=== PATIENT | female | born 1940 | race Caucasian/White ===

== ENCOUNTER → 2017-10-13 | Outpatient (CLI) | payer MEDICARE, BC ==
--- NOTE | 2017-10-13 12:16 | MR ---
EXAMINATION TYPE: MR brain wo con DATE OF EXAM: 10/13/2017 COMPARISON: NONE HISTORY: Mild Cognitive Impairment T1-weighted sagittal, T2, FLAIR, and diffusion axial, and T2 coronal coronal views of the brain are s ubmitted. There is no evidence of acute ischemia. Changes of chronic sinusitis noted. Mild generalized degenera tive change noted. A few areas of abnormal signal seen scattered in the white matter are nonspecific but most typical re mote microvascular ischemia. There is no mass effect. Craniocervical junction maintained. Sella turcica has a normal appearance. No cerebellopontine angle mass. Absence of the normal signal void within the left carotid artery susp ect chronic thrombosis given there are no findings of acute ischemia. IMPRESSION: 1. No acute intracranial process. There is absence of the normal signal void of the left internal car otid artery. Recommend correlation with ultrasound for possible chronic occlusion. No acute ischemia. 2. Mild generalized degenerative change. Minimal nonspecific white matter findings most typical remot e microvascular ischemia. 3. Chronic sinusitis.
== END | disposition home or self-care (01) ==
LOC: RADMRIMAIN 10:19
PROVIDERS: ATTEND Psychiatry & Neurology Neurology
DX: R90.82 White matter disease, unspecified (principal); R93.0 Abnormal findings on diagnostic imaging of skull and head, not elsewhere classified; G31.84 Mild cognitive impairment of uncertain or unknown etiology
CPT/HCPCS: 70551

== ENCOUNTER 2018-01-26 09:56 | Day surgery (SDC) | payer MEDICARE, BC ==
[2018-01-24 18:13] VITALS: BMI 21.6
[~2018-01-26 09:56] MED LIST: SODIUM CHLORIDE 0.9% 1,000 ML IV SCH
[2018-01-26] MEDS ORDERED: CLINDAMYCIN 900 MG in DEXTROSE 5% IN WATER 50 ML IVPB ONE ×2 (10:00)
[2018-01-26] MEDS ORDERED: CLINDAMYCIN 600 MG in SODIUM CHLORIDE 0.9% IRRIGATIO 250 ML IRRIGATION ONE (10:00)
[2018-01-26 10:39] LABS: Basophils % (A) 0 %; Eosinophils # (A) 0.1 k/uL (0-0.7); Eosinophils % (A) 2 %; HGB 11.2 gm/dL (11.4-16.0); Lymphocytes # (A) 1.1 k/uL (1.0-4.8); Lymphocytes % (A) 16 %; MCH 27.3 pg (25.0-35.0); MCHC 31.9 g/dL (31.0-37.0); MCV 85.6 fL (80.0-100.0); Mean Platelet Volume 7.3; Monocytes # (A) 0.5 k/uL (0-1.0); Monocytes % (A) 7 %; Neutrophils # (A) 4.9 k/uL (1.3-7.7); Neutrophils % (A) 73 %; Platelet Count 191 k/uL (150-450); RBC 4.09 m/uL (3.80-5.40); RDW 15.4 % (11.5-15.5); WBC 6.7 k/uL (3.8-10.6)
[2018-01-26 10:40] LABS: Glucose,Whole Blood 139 mg/dL (75-99)
[2018-01-26 10:58] LABS: Calcium 9.7 mg/dL (8.4-10.2); Potassium 5.1 mmol/L (3.5-5.1)
[2018-01-26] MEDS ORDERED: IV FLUID CONTINUATION 1,000 ML IV ONE (11:00)
[2018-01-26] MEDS: IODIXANOL 320 MG/ML 100 ML IV ONE ×2 (11:20→12:09)
[2018-01-26] MEDS: fentaNYL (PF) 50 MCG/ML 2 ML AMP IV ONE ×2 (11:45→11:54)
[2018-01-26] MEDS ORDERED: MIDAZOLAM 2 MG/2 ML VIAL ONE (11:45)
[2018-01-26] MEDS ORDERED: fentaNYL (PF) 50 MCG/ML 2 ML AMP ONE (11:45)
[2018-01-26] MEDS: MIDAZOLAM 2 MG/2 ML VIAL IV ONE ×2 (11:46→11:54)
[2018-01-26] MEDS ORDERED: LIDOCAINE 1% INJ 10MG/ML (20 ML MDV) SQ ONE (11:49)
[2018-01-26] MEDS: LIDOCAINE 1% (PF) 10MG/ML VIAL SQ ONE ×2 (11:49→12:00)
[2018-01-26] MEDS ORDERED: ACETAMINOPHEN TAB 325 MG TAB PO PRN (12:59)
[2018-01-26] MEDS ORDERED: ALPRAZolam 0.5 MG TAB PO PRN (13:48)
[2018-01-26] MEDS ORDERED: ALBUTEROL NEBULIZED 2.5 MG/3 ML INHALATION PRN (13:48)
[2018-01-26] MEDS: CLINDAMYCIN 900 MG in DEXTROSE 5% IN WATER 50 ML IVPB SCH ×4 (17:51→23:42)
[2018-01-26] MEDS: CARVEDILOL 3.125 MG TAB PO SCH (17:51)
[2018-01-26] MEDS: OXYBUTYNIN XL 5 MG TAB.ER.24 PO SCH (19:46)
[2018-01-26] MEDS: GABAPENTIN 400 MG CAP PO SCH (19:47)
[2018-01-26 20:52] LABS: Glucose,Whole Blood 108 mg/dL (75-99)
[2018-01-26 20:55] LABS: Hemoglobin A1C 7.1 % (4.0-6.0)
[2018-01-26] MEDS ORDERED: PRIMIDONE 50 MG TAB PO SCH (21:00)
[2018-01-27] MEDS: CLINDAMYCIN 900 MG in DEXTROSE 5% IN WATER 50 ML IVPB SCH ×4 (06:10→11:46)
[2018-01-27] MEDS ORDERED: LEVOTHYROXINE 25 MCG TAB PO SCH (06:30)
[2018-01-27 07:07] LABS: Glucose,Whole Blood 135 mg/dL (75-99)
--- NOTE | 2018-01-27 08:03 | XR ---
EXAMINATION TYPE: XR chest 2V DATE OF EXAM: 01/27/2018 COMPARISON: 01/07/2017 INDICATION: Lead placement check TECHNIQUE: Frontal and lateral views of the chest are obtained. FINDINGS: The heart size is normal. The pulmonary vasculature is normal. The lungs are clear. Sternotomy wires are present from previous cardiac valve surgery. Post-CABG viviana gical clips are present. Pacemaker is placed on the left. Leads follow a normal course. No pneumothorax is evident. IMPRESSION: 1. No pneumothorax post pacer maker placement. 2. No acute pulmonary process.
[2018-01-27 08:05] VITALS: RESP 16
[2018-01-27] MEDS: GABAPENTIN 400 MG CAP PO SCH (08:32)
[2018-01-27] MEDS: OXYBUTYNIN XL 5 MG TAB.ER.24 PO SCH (08:32)
[2018-01-27] MEDS: CARVEDILOL 3.125 MG TAB PO SCH (08:33)
[2018-01-27] MEDS ORDERED: ATORVASTATIN 80 MG TAB PO SCH (09:00)
[2018-01-27] MEDS ORDERED: PANTOPRAZOLE 40 MG TABLET PO SCH (09:00)
[2018-01-27] MEDS ORDERED: ISOSORBIDE MONONITRATE ER 30 MG TAB.ER.24H PO SCH (09:00)
[2018-01-27] MEDS ORDERED: SERTRALINE 50 MG TAB PO SCH (09:00)
[2018-01-27] MEDS ORDERED: glipiZIDE 5 MG TAB PO SCH (09:00)
--- NOTE | 2018-01-27 11:09 | P.PN ---
Subjective Progress Note Date: 01/27/18 Principal diagnosis: Status post pacemaker implantation Discharge note This is a pleasant 77-year-old female patient with history of coronary artery disease, hypertension, hyperlipidemia, who was admitted to the hospital by Dr. Perez yesterday for implantation of a permanent pacemaker. Patient had worn an event monitor which displayed episodes of long pauses up to 4.1 seconds, she also had episode of syncope. Device was interrogated this morning and is functioning appropriately. Chest x-ray was reviewed and did not reveal any evidence of a pneumothorax. Patient is hemodynamically stable. Objective - Vital Signs Vital signs: Vital Signs Temp 98.2 F 01/27/18 08:00 Pulse 67 01/27/18 08:00 Resp 16 01/27/18 08:00 BP 160/71 01/27/18 08:00 Pulse Ox 97 01/27/18 08:00 Intake & Output 01/26/18 01/27/18 01/27/18 18:59 06:59 18:59 Intake Total 106 Balance 106 Weight 60.781 kg Intake: IV 106 Other: Voiding Method Toilet Toilet Toilet # Voids 3 - Exam PHYSICAL EXAMINATION: HEENT: Head is atraumatic, normocephalic. Pupils equal, round. Neck is supple. There is no elevated jugular venous pressure. HEART EXAMINATION: Heart S1, S2 normal. No murmur or gallop heard. CHEST EXAMINATION: Lungs are clear to auscultation and precussion. No chest wall tenderness is noted on palpation or with deep breathing. Site of pacemaker implantation dressing is dry and intact ABDOMEN: Soft, nontender. Bowel sounds are heard. No organomegaly noted. EXTREMITIES: 2+ peripheral pulses with no evidence of peripheral edema and no calf tenderness noted. NEUROLOGIC patient is awake, alert and oriented -3. . - Labs CBC & Chem 7: 01/26/18 10:30 01/26/18 10:30 Labs: Abnormal Lab Results - Last 24 Hours (Table) 01/26/18 01/26/18 01/27/18 Range/Units 10:28 20:51 07:05 POC Glucose (mg/dL) 108 H 135 H (75-99) mg/dL Hemoglobin A1c 7.1 H (4.0-6.0) % Assessment and Plan Plan: Assessment and plan #1 status post implantation of permanent pacemaker. #2 diabetes #3 hypertension #4 hyperlipidemia number #5 history of bypass surgery and mitral valve repair with ring Plan Patient will be discharged home today. Appointment will be made with Dr. Perez in the device clinic in one week. She will continue on Cleocin for 3 days. Patient will also be discharged home on Lipitor 80 mg daily, Coreg 3.125 mg twice a day, Neurontin 800 mg daily, Glucotrol, Imdur 30 mg daily, Synthroid, Zoloft, Protonix. DNP note has been reviewed, I agree with a documented findings and plan of care. Patient was seen and examined.
[2018-01-27 11:59] LABS: Glucose,Whole Blood 138 mg/dL (75-99)
[2018-01-27 12:07] VITALS: BP 119/59; PULSE 61; TEMP 98
[2018-01-27] MEDS ORDERED: CLINDAMYCIN 150 MG CAP PO SCH (21:00)
--- NOTE | 2018-02-01 18:26 | P.PCN ---
Date of Procedure: 01/26/18 Preoperative Diagnosis: Sick sinus syndrome, syncope episodes, sinus pauses of more than 4 seconds Postoperative Diagnosis: The same Procedure(s) Performed: Dual-chamber permanent pacemaker implantation, axillary venography Description of Procedure: HISTORY: This is a 77-year-old female with history of ischemic heart disease who has had episodes of syncope. Patient had event monitor which showed evidence of sick sinus syndrome with pauses up to 4 seconds. In view of her recurrent syncopal episodes and evidence of sick sinus syndrome, patient is advised to have permanent pacemaker implantation. CONSENT:I have discussed the risks, benefits and alternative therapies for the above-mentioned procedure and for both sedation/analgesia as well as necessary blood product administration, if indicated, as they pertain to this patient. The patient has indicated understanding and acceptance of the risks and procedures discussed. PROCEDURE: Patient was brought to the lab in a fasting state. Patient was prepped and draped in the usual fashion. Patient was given IV sedation with fentanyl and Versed. The skin below the left clavicle was infiltrated with lidocaine. An incision was made parallel to deltopectoral groove was deepened until the pectoral fascia was exposed. A pocket was created by blunt dissection and cautery. Axillary venography was performed to delineate the course of the axillary vein. 2 sticks were performed into extrathoracic portion of the axillary vein and 2 sheaths were advanced over the guidewires and left in subclavian vein. Conscious Sedation: Versed 1mg Fentanyl 50 g Duration 60minutes LEADS: ATRIAL: This is manufactured by [employer] Model number is [id number] and the serial number is [id number]. VENTRICULAR: This is manufactured by [employer]. Model number is [id number]. Serial number is [id number]. The ventricular lead is maneuvered l with help of a straight and curved stylets into the left ventricle apical region. Satisfactory position was obtained and threshold measurements were made. The atrial lead was then maneuvered into the right atrial appendage. And thresholds were obtained. THRESHOLDS: ATRIUM: The minimum pacing threshold was 1.3 at pulse width of 0.5 with impedance of 393 ohms. P-wave: 2.3 VENTRICLE:. The minimal pacing threshold was 0.4 at pulse width of 0.5. The impedance was 798 R-wave: 12.1 The leads and pulse generator remained in the pocket after it was washed with antibiotics. Pocket was closed in the usual fashion. The fascia was closed with 2-0 Prolene ,the subcutaneous tissue was closed with 3-0 Prolene and the skin was closed with 4-0 Prolene. PROGRAMMING: MODE: DDDR RATE: 60 to 130 OUTPUT: Atrium: 3.5, Ventricle: 3.5 FINAL IMPRESSION: #1. Successful implantation of dual-chamber permanent pacemaker. #2. Axillary venography COMPLICATIONS: Nil PLAN:. Patient will be continued on prophylactic antibiotic. She will be monitored on the telemetry unit for the next 24 hours. If stable patient be discharged home in the morning.
== END 2018-01-27 13:37 | disposition home or self-care (01) ==
LOC: CATHEP 09:56 → 3OBS 13:05 → CATHEP 01-27 13:37
PROVIDERS: ATTEND Internal Medicine Cardiovascular Disease
DX: I49.5 Sick sinus syndrome (principal); R55 Syncope and collapse; I25.9 Chronic ischemic heart disease, unspecified; R94.31 Abnormal electrocardiogram [ECG] [EKG]; I25.10 Atherosclerotic heart disease of native coronary artery without angina pectoris; Z87.891 Personal history of nicotine dependence; E78.00 Pure hypercholesterolemia, unspecified; I10 Essential (primary) hypertension; E11.9 Type 2 diabetes mellitus without complications; Z95.1 Presence of aortocoronary bypass graft; Z95.5 Presence of coronary angioplasty implant and graft; Z82.49 Family history of ischemic heart disease and other diseases of the circulatory system; I65.29 Occlusion and stenosis of unspecified carotid artery; Z79.82 Long term (current) use of aspirin; Z79.899 Other long term (current) drug therapy; Z88.0 Allergy status to penicillin
CPT/HCPCS: 33208; 80048; 85025; 83036; 71046; C1898; C1785; J2250; Q9967; J3010; J2001

== ENCOUNTER 2018-07-17 11:16 | Observation (INO) | payer MEDICARE, BC ==
[2018-07-17] MEDS ORDERED: ASPIRIN 81 MG PO STA (11:27)
[2018-07-17] MEDS ORDERED: NITROGLYCERIN OINT 1 INCH/GM PACKET TOPICAL STA (11:27)
--- NOTE | 2018-07-17 11:42 | ED ---
General Adult HPI - General Chief complaint: Chest Pain Stated complaint: Chest pain, SOB Time Seen by Provider: 07/17/18 11:20 Source: patient, RN notes reviewed Mode of arrival: ambulatory Limitations: no limitations - History of Present Illness Initial comments: This is a 77-year-old female presents emergency Department complaining of chest pain. Patient states she has a past medical history of bypass surgery 2 multiple stents. Patient states she has a diabetic does have high blood pressure and does have high cholesterol. Patient comes in today with chest pain that started at 9:00 this morning and it radiates down her right arm and it also makes her short of breath. Patient states it is similar pain to the pain she had when she had a bypass surgery. Patient states she did not take any nitroglycerin. She did take an 81 mg aspirin when she woke up this morning. Patient denies any palpitations. Patient denies any recent fever chills or cough. Patient denies headache patient denies numbness weakness. - Related Data Home Medications Medication Instructions Recorded Confirmed Omeprazole 20 mg PO DAILY 06/02/16 07/17/18 Primidone [Mysoline] 50 mg PO HS 06/02/16 07/17/18 Sertraline [Zoloft] 150 mg PO DAILY 06/02/16 07/17/18 Albuterol Nebulized [Ventolin 2.5 mg INHALATION RT-TID PRN 11/06/17 07/17/18 Nebulized] Aspirin [Adult Low Dose Aspirin EC] 81 mg PO DAILY 11/06/17 07/17/18 Atorvastatin Calcium [Lipitor] 80 mg PO DAILY 11/06/17 07/17/18 Isosorbide Mononitrate ER [Imdur] 30 mg PO DAILY 11/06/17 07/17/18 Levothyroxine Sodium 25 mcg PO DAILY 11/06/17 07/17/18 glipiZIDE [Glucotrol] 5 mg PO DAILY 11/06/17 07/17/18 Carvedilol [Coreg] 12.5 mg PO BID 07/17/18 07/17/18 Cyanocobalamin (Vitamin B-12) 1,000 mcg PO DAILY 07/17/18 07/17/18 [Vitamin B-12] Nitroglycerin Sl Tabs [Nitrostat] 0.4 mg PO Q5M PRN 07/17/18 07/17/18 Nortriptyline HCl [Pamelor] 50 mg PO HS 07/17/18 07/17/18 Oxybutynin Chloride [Oxybutynin 10 mg PO DAILY 07/17/18 07/17/18 Chloride ER] Tear Drops 1 drop BOTH EYES DAILY PRN 07/17/18 07/17/18 Allergies Allergy/AdvReac Type Severity Reaction Status Date / Time adhesive Allergy Rash/Hives Verified 07/17/18 12:25 adhesive tape Allergy Rash/Hives Verified 07/17/18 12:25 Cephalosporins Allergy Unknown Verified 07/17/18 12:25 erythromycin base Allergy Rash/Hives Verified 07/17/18 12:25 Macrolide Antibiotics Allergy Unknown Verified 07/17/18 12:25 zolpidem Allergy Unknown Verified 07/17/18 12:25 EKG pads Allergy Rash/Hives Uncoded 07/17/18 11:22 Review of Systems ROS Statement: Those systems with pertinent positive or pertinent negative responses have been documented in the HPI. ROS Other: All systems not noted in ROS Statement are negative. Past Medical History Past Medical History: Coronary Artery Disease (CAD), Diabetes Mellitus, Hyperlipidemia, Hypertension, Myocardial Infarction (NE), Renal Disease, Thyroid Disorder Additional Past Medical History / Comment(s): NE X2, HEART VALVE REPLACED. 3RD STAGE KIDNEY DISEASE. TREMORS HANDS. OCC SHORTNESS OF BREATH. SEE DR Toure. Last Myocardial Infarction Date:: 2015 EST History of Any Multi-Drug Resistant Organisms: None Reported Past Surgical History: Appendectomy, Cardiac Valve Replacement, Cholecystectomy , Heart Catheterization With Stent, Joint Replacement, Orthopedic Surgery, Pacemaker, Tonsillectomy Additional Past Surgical History / Comment(s): Bilateral shoulder sx, SYDNI TOTAL KNEES. STENTS X2. left shoulder scope. Pacemaker - January 2018 Past Anesthesia/Blood Transfusion Reactions: No Reported Reaction Date of Last Stent Placement:: UNKNOWN Type of Cardiac Device: Permanent Pacemaker, Unknown Device Placement Date:: January 2018 Past Psychological History: Anxiety, Depression Smoking Status: Former smoker Past Alcohol Use History: None Reported Past Drug Use History: None Reported - Past Family History Mother Family Medical History: No Reported History General Exam - General Exam Comments Initial Comments: GENERAL: Patient is well-developed and well-nourished. Patient is nontoxic and well- hydrated and is in mild distress. ENT: Neck is soft and supple. No significant lymphadenopathy is noted. Oropharynx is clear. Moist mucous membranes. Neck has full range of motion without eliciting any pain. EYES: The sclera were anicteric and conjunctiva were pink and moist. Extraocular movements were intact and pupils were equal round and reactive to light. Eyelids were unremarkable. PULMONARY: Unlabored respirations. Good breath sounds bilaterally. No audible rales rhonchi or wheezing was noted. CARDIOVASCULAR: There is a regular rate and rhythm without any murmurs gallops or rubs. ABDOMEN: Soft and nontender with normal bowel sounds. No palpable organomegaly was noted. There is no palpable pulsatile mass. SKIN: Skin is clear with no lesions or rashes and otherwise unremarkable. NEUROLOGIC: Patient is alert and oriented x3. Cranial nerves II through XII are grossly intact. Motor and sensory are also intact. Normal speech, volume and content. Symmetrical smile. MUSCULOSKELETAL: Normal extremities with adequate strength and full range of motion. LYMPHATICS: No significant lymphadenopathy is noted PSYCHIATRIC: Normal psychiatric evaluation. Limitations: no limitations Course Vital Signs 07/17/18 07/17/18 11:20 11:32 Temperature 97.7 F Pulse Rate 71 68 Respiratory 18 18 Rate Blood Pressure 168/85 165/78 O2 Sat by Pulse 99 99 Oximetry Medical Decision Making - Medical Decision Making EKG shows normal sinus rhythm at 65 bpm MS interval 178 QRSs 1 week QT interval 470 QTC is 48 patient EKG shows inverted T waves in leads V2 through V6 as well as 12 and aVL these are also seen on old EKG. Chest x-ray shows no acute abnormality I started the patient on heparin. I spoke with Dr. Good he wanted the patient admitted admitted the patient I consult cardiology I wrote admitting orders I continued the heparin Nitropaste and aspirin on the floor - Lab Data Result diagrams: 07/17/18 11:41 07/17/18 11:41 Lab Results 07/17/18 07/17/18 07/17/18 Range/Units 11:41 11:41 11:41 WBC 7.8 (3.8-10.6) k/uL RBC 4.51 (3.80-5.40) m/uL Hgb 13.1 (11.4-16.0) gm/dL Hct 41.1 (34.0-46.0) % MCV 91.3 (80.0-100.0) fL MCH 29.1 (25.0-35.0) pg MCHC 31.9 (31.0-37.0) g/dL RDW 14.7 (11.5-15.5) % Plt Count 196 (150-450) k/uL Neutrophils % 70 % Lymphocytes % 18 % Monocytes % 7 % Eosinophils % 3 % Basophils % 1 % Neutrophils # 5.5 (1.3-7.7) k/uL Lymphocytes # 1.4 (1.0-4.8) k/uL Monocytes # 0.5 (0-1.0) k/uL Eosinophils # 0.2 (0-0.7) k/uL Basophils # 0.0 (0-0.2) k/uL PT (9.0-12.0) sec INR (<1.2) APTT (22.0-30.0) sec Sodium 138 (137-145) mmol/L Potassium 4.7 (3.5-5.1) mmol/L Chloride 105 (98-107) mmol/L Carbon Dioxide 24 (22-30) mmol/L Anion Gap 9 mmol/L BUN 19 H (7-17) mg/dL Creatinine 0.90 (0.52-1.04) mg/dL Est GFR (CKD-EPI)AfAm 73 (>60 ml/min/1.73 sqM) Est GFR (CKD-EPI)NonAf 63 (>60 ml/min/1.73 sqM) Glucose 220 H (74-99) mg/dL Calcium 9.5 (8.4-10.2) mg/dL Magnesium 1.9 (1.6-2.3) mg/dL Total Bilirubin 0.6 (0.2-1.3) mg/dL AST 36 (14-36) U/L ALT 47 (9-52) U/L Alkaline Phosphatase 119 (38-126) U/L Total Creatine Kinase 94 (30-135) U/L CK-MB (CK-2) 1.3 (0.0-2.4) ng/mL CK-MB (CK-2) Rel Index 1.4 Troponin I <0.012 (0.000-0.034) ng/mL Total Protein 7.1 (6.3-8.2) g/dL Albumin 4.3 (3.5-5.0) g/dL 07/17/18 Range/Units 11:41 WBC (3.8-10.6) k/uL RBC (3.80-5.40) m/uL Hgb (11.4-16.0) gm/dL Hct (34.0-46.0) % MCV (80.0-100.0) fL MCH (25.0-35.0) pg MCHC (31.0-37.0) g/dL RDW (11.5-15.5) % Plt Count (150-450) k/uL Neutrophils % % Lymphocytes % % Monocytes % % Eosinophils % % Basophils % % Neutrophils # (1.3-7.7) k/uL Lymphocytes # (1.0-4.8) k/uL Monocytes # (0-1.0) k/uL Eosinophils # (0-0.7) k/uL Basophils # (0-0.2) k/uL PT 10.6 (9.0-12.0) sec INR 1.1 (<1.2) APTT 24.0 (22.0-30.0) sec Sodium (137-145) mmol/L Potassium (3.5-5.1) mmol/L Chloride (98-107) mmol/L Carbon Dioxide (22-30) mmol/L Anion Gap mmol/L BUN (7-17) mg/dL Creatinine (0.52-1.04) mg/dL Est GFR (CKD-EPI)AfAm (>60 ml/min/1.73 sqM) Est GFR (CKD-EPI)NonAf (>60 ml/min/1.73 sqM) Glucose (74-99) mg/dL Calcium (8.4-10.2) mg/dL Magnesium (1.6-2.3) mg/dL Total Bilirubin (0.2-1.3) mg/dL AST (14-36) U/L ALT (9-52) U/L Alkaline Phosphatase (38-126) U/L Total Creatine Kinase (30-135) U/L CK-MB (CK-2) (0.0-2.4) ng/mL CK-MB (CK-2) Rel Index Troponin I (0.000-0.034) ng/mL Total Protein (6.3-8.2) g/dL Albumin (3.5-5.0) g/dL Critical Care Time Critical Care Time: Yes Total Critical Care Time: 35 Disposition Clinical Impression: Unstable angina pectoris Disposition: ADMITTED IP TO THIS HOSP Referrals: Josh Good MD [Primary Care Provider] - 1-2 days Time of Disposition: 13:06
[2018-07-17 11:55] LABS: Basophils % (A) 1 %; Eosinophils # (A) 0.2 k/uL (0-0.7); Eosinophils % (A) 3 %; HCT 41.1 % (34.0-46.0); HGB 13.1 gm/dL (11.4-16.0); Lymphocytes # (A) 1.4 k/uL (1.0-4.8); Lymphocytes % (A) 18 %; MCH 29.1 pg (25.0-35.0); MCHC 31.9 g/dL (31.0-37.0); MCV 91.3 fL (80.0-100.0); Mean Platelet Volume 6.5; Monocytes # (A) 0.5 k/uL (0-1.0); Monocytes % (A) 7 %; Neutrophils # (A) 5.5 k/uL (1.3-7.7); Neutrophils % (A) 70 %; Platelet Count 196 k/uL (150-450); RBC 4.51 m/uL (3.80-5.40); RDW 14.7 % (11.5-15.5); WBC 7.8 k/uL (3.8-10.6)
--- NOTE | 2018-07-17 12:00 | XR ---
EXAMINATION TYPE: XR chest 2V DATE OF EXAM: 07/17/2018 COMPARISON: Prior chest x-ray 01/27/2018 HISTORY: Chest pain TECHNIQUE: Frontal and lateral views of the chest are obtained. FINDINGS: There is no focal air space opacity, pleural effusion, or pneumothorax seen. The cardiac silhouette size is within normal limits. The osseous structures are intact. Postop changes are stab le. IMPRESSION: No acute cardiopulmonary process.
[2018-07-17 12:06] LABS: Albumin 4.3 g/dL (3.5-5.0); Calcium 9.5 mg/dL (8.4-10.2); Magnesium 1.9 mg/dL (1.6-2.3); Potassium 4.7 mmol/L (3.5-5.1); Total Bilirubin 0.6 mg/dL (0.2-1.3); Total Protein 7.1 g/dL (6.3-8.2)
[2018-07-17 12:09] LABS: INR 1.1 (<1.2); Prothrombin Time 10.6 sec (9.0-12.0)
[2018-07-17 12:15] LABS: Creatine Kinase 94 U/L (30-135)
[2018-07-17 12:28] LABS: Creatine Kinase MB 1.3 ng/mL (0.0-2.4); Troponin I <0.012 ng/mL (0.000-0.034)
[2018-07-17] MEDS ORDERED: HEPARIN SODIUM,PORCINE 5,000 UNIT/ML 1 ML VIAL IV ONE (13:02)
[2018-07-17] MEDS ORDERED: NITROGLYCERIN SL TABS 0.4 MG TAB SUBLINGUAL PRN (13:06)
[2018-07-17] MEDS ORDERED: ALBUTEROL NEBULIZED 2.5 MG/3 ML INHALATION PRN (13:08)
[2018-07-17] MEDS ORDERED: HEPARIN SOD,PORK IN 0.45% NACL 25,000 UNIT in 0.45% NACL 1 500ML.BAG IV SCH (13:15)
[2018-07-17 14:30] LABS: Glucose,Whole Blood 115 mg/dL (75-99)
--- NOTE | 2018-07-17 15:25 | P.CRDCN ---
History of Present Illness History of present illness: Mrs. Martinez is seen and examined resting comfortably in bed. Past medical history significant for coronary artery disease s/p bypass grafting 1997 two- vessel JOY to LAD and SVG to RCA along with the mitral valve repair with a ring. Subsequent bypass 2000 radial to OM. She also has hypertension, dyslipidemia, diabetes mellitus, chronic kidney disease and is s/p permanent pacemaker insertion 01/2018 for syncope with greater than 4 second pauses. She follows with Dr. Perez in the office. We have been asked to see her in consultation for chest pain. She states this morning at 0900 while sitting down she developed and heavy sensation in the mid-sternal region with radiation down the right arm and right hand numbness/tingling. She was short of breath, dizzy and diaphoretic. She denies radiation to left arm, neck, jaw or back. She denies associated palpitations, nausea or vomiting. Her symptoms persisted until she came to ED for evaluation and was given nitropaste. Since that time she has had no reoccurrence of her symptoms. She states this felt similar to how she felt when she had previous AK. She also complains of feeling short of breath with exertion more so lately. She is unable to go up the stairs anymore due to this. She denies orthopnea, PND, cough, fever or chills. EKG reveals T-wave inversions in precordial leads as well as inferiorly. This is consistent with old EKG's, no acute changes noted. Chest xray negative for an acute cardiopulmonary process. Laboratory data reviewed, hemoglobin 13.1, platelets 196, sodium 138, potassium 4.7, magnesium 1.9, creatinine 0.9, cardiac enzymes negative 1. Current cardiac medications include aspirin 81 mg daily, atorvastatin 80 mg daily, carvedilol 12.5 mg twice a day, Imdur 30 mg daily. She also takes Pamelor, glipizide, Zoloft, primidone, oxybutynin 9, omeprazole, levothyroxine and Ventolin. Most recent cardiac catheterization performed 2009 revealed 80% proximal LAD, 90 % ostial diagonal 1, 80% mid circumflex, 80% proximal RCA, JOY to LAD and SVG to RCA patent. History of coronary artery bypass grafting Review of Systems At the time of my exam: CONSTITUTIONAL: Denies fever. Denies chills. EYES: Denies blurred vision. Denies vision changes. Denies eye pain. EARS, NOSE, MOUTH & THROAT: Denies headache. Denies sore throat. Denies ear pain. CARDIOVASCULAR: Denies chest pain. Denies shortness of breath. Denies orthopnea. Denies PND. Denies palpitations. RESPIRATORY: Denies cough. GASTROINTESTINAL: Denies abdominal pain. Denies diarrhea. Denies constipation. Denies nausea. Denies vomiting. MUSCULOSKELETAL: Denies myalgias. INTEGUMENTARY: Denies pruitis. Denies rash. NEUROLOGIC: Denies numbness. Denies tingling. Denies weakness. PSYCHIATRIC: Denies anxiety. Denies depression. ENDOCRINE: Denies fatigue. Denies weight change. Denies polydipsia. Denies polyurina. GENITOURINARY: Denies burning, hematuria or urgency with micturation. HEMATOLOGIC: Denies history of anemia. Denies bleeding. Past Medical History Past Medical History: Coronary Artery Disease (CAD), Diabetes Mellitus, Hyperlipidemia, Hypertension, Myocardial Infarction (AK), Renal Disease, Thyroid Disorder Additional Past Medical History / Comment(s): AK X2, HEART VALVE REPLACED. 3RD STAGE KIDNEY DISEASE. TREMORS HANDS. OCC SHORTNESS OF BREATH. SEE DR Toure. Last Myocardial Infarction Date:: 2015 EST History of Any Multi-Drug Resistant Organisms: None Reported Past Surgical History: Appendectomy, Cardiac Valve Replacement, Cholecystectomy , Heart Catheterization With Stent, Joint Replacement, Orthopedic Surgery, Pacemaker, Tonsillectomy Additional Past Surgical History / Comment(s): Bilateral shoulder sx, SYDNI TOTAL KNEES. STENTS X2. left shoulder scope. Pacemaker - January 2018, egd/ colonoscopy Past Anesthesia/Blood Transfusion Reactions: No Reported Reaction Additional Past Anesthesia/Blood Transfusion Reaction / Comment(s): clausterphobia Date of Last Stent Placement:: UNKNOWN Type of Cardiac Device: Permanent Pacemaker Device Placement Date:: January 2018 Past Psychological History: Anxiety, Depression Smoking Status: Former smoker Past Alcohol Use History: None Reported Additional Past Alcohol Use History / Comment(s): started smoking 1976 <1/2 PPD , QUIT 2011. Past Drug Use History: None Reported - Past Family History Mother Family Medical History: Diabetes Mellitus, Myocardial Infarction (AK) Father Family Medical History: Myocardial Infarction (AK) Medications and Allergies Home Medications Medication Instructions Recorded Confirmed Type Omeprazole 20 mg PO DAILY 06/02/16 07/17/18 History Primidone [Mysoline] 50 mg PO HS 06/02/16 07/17/18 History Sertraline [Zoloft] 150 mg PO DAILY 06/02/16 07/17/18 History Albuterol Nebulized [Ventolin 2.5 mg INHALATION RT-TID PRN 11/06/17 07/17/18 History Nebulized] Aspirin [Adult Low Dose Aspirin EC] 81 mg PO DAILY 11/06/17 07/17/18 History Atorvastatin Calcium [Lipitor] 80 mg PO DAILY 11/06/17 07/17/18 History Isosorbide Mononitrate ER [Imdur] 30 mg PO DAILY 11/06/17 07/17/18 History Levothyroxine Sodium 25 mcg PO DAILY 11/06/17 07/17/18 History glipiZIDE [Glucotrol] 5 mg PO DAILY 11/06/17 07/17/18 History Carvedilol [Coreg] 12.5 mg PO BID 07/17/18 07/17/18 History Cyanocobalamin (Vitamin B-12) 1,000 mcg PO DAILY 07/17/18 07/17/18 History [Vitamin B-12] Nitroglycerin Sl Tabs [Nitrostat] 0.4 mg PO Q5M PRN 07/17/18 07/17/18 History Nortriptyline HCl [Pamelor] 50 mg PO HS 07/17/18 07/17/18 History Oxybutynin Chloride [Oxybutynin 10 mg PO DAILY 07/17/18 07/17/18 History Chloride ER] Tear Drops 1 drop BOTH EYES DAILY PRN 07/17/18 07/17/18 History Allergies Allergy/AdvReac Type Severity Reaction Status Date / Time adhesive Allergy Rash/Hives Verified 07/17/18 12:25 adhesive tape Allergy Rash/Hives Verified 07/17/18 12:25 Cephalosporins Allergy Unknown Verified 07/17/18 12:25 erythromycin base Allergy Rash/Hives Verified 07/17/18 12:25 Macrolide Antibiotics Allergy Unknown Verified 07/17/18 12:25 zolpidem Allergy Unknown Verified 07/17/18 12:25 EKG pads Allergy Rash/Hives Uncoded 07/17/18 11:22 Physical Exam Vitals: Vital Signs Temp Pulse Resp BP Pulse Ox 07/17/18 11:32 68 18 165/78 99 07/17/18 11:20 97.7 F 71 18 168/85 99 Intake and Output 07/16/18 07/17/18 07/17/18 22:59 06:59 14:59 Other: Weight 64.864 kg Blood pressure 165/78 heart rate 68 afebrile maintaining oxygen saturation on nasal cannula GENERAL: This is a 77-year-old female in no apparent distress at the time of my examination. HEENT: Head is atraumatic, normocephalic. Pupils are equal, round. Sclerae anicteric. Conjunctivae are clear. Mucous membranes of the mouth are moist. Neck is supple. There is no jugular venous distention. No carotid bruit is heard. LUNGS: Clear to auscultation no wheezes, rales or rhonchi. No chest wall tenderness is noted on palpation or with deep breathing. HEART: Regular rate and rhythm with murmur at the apex, no rubs or gallops. S1 and S2 heard. ABDOMEN: Soft, nontender. Bowel sounds are heard. No organomegaly noted. EXTREMITIES: No evidence of peripheral edema and no calf tenderness noted. VASCULAR: Radial and dorsalis pedis pulses palpated, no evidence of clubbing. NEUROLOGIC: Patient is awake, alert and oriented x3. Results 07/17/18 11:41 07/17/18 11:41 Cardiac Enzymes 07/17/18 07/17/18 Range/Units 11:41 11:41 AST 36 (14-36) U/L CK-MB (CK-2) 1.3 (0.0-2.4) ng/mL Troponin I <0.012 (0.000-0.034) ng/mL Coagulation 07/17/18 Range/Units 11:41 PT 10.6 (9.0-12.0) sec APTT 24.0 (22.0-30.0) sec CBC 07/17/18 Range/Units 11:41 WBC 7.8 (3.8-10.6) k/uL RBC 4.51 (3.80-5.40) m/uL Hgb 13.1 (11.4-16.0) gm/dL Hct 41.1 (34.0-46.0) % Plt Count 196 (150-450) k/uL Comprehensive Metabolic Panel 07/17/18 Range/Units 11:41 Sodium 138 (137-145) mmol/L Potassium 4.7 (3.5-5.1) mmol/L Chloride 105 (98-107) mmol/L Carbon Dioxide 24 (22-30) mmol/L BUN 19 H (7-17) mg/dL Creatinine 0.90 (0.52-1.04) mg/dL Glucose 220 H (74-99) mg/dL Calcium 9.5 (8.4-10.2) mg/dL AST 36 (14-36) U/L ALT 47 (9-52) U/L Alkaline Phosphatase 119 (38-126) U/L Total Protein 7.1 (6.3-8.2) g/dL Albumin 4.3 (3.5-5.0) g/dL Current Medications Generic Name Dose Route Start Last Admin Trade Name Freq PRN Reason Stop Dose Admin Albuterol Sulfate 2.5 mg 07/17/18 13:08 Ventolin Nebulized INHALATION RT-TID PRN Shortness Of Breath Aspirin 325 mg 07/18/18 09:00 Aspirin PO DAILY [facility] Atorvastatin Calcium 80 mg 07/18/18 09:00 Lipitor PO DAILY [facility] Carvedilol 12.5 mg 07/17/18 17:30 Coreg PO AC-BID [facility] Glipizide 5 mg 07/18/18 07:30 Glucotrol PO AC-BRKFST [facility] Heparin Sodium/Sodium Chloride 500 mls @ 15.56 mls/hr 07/17/18 13:15 25,000 unit/ Sodium Chloride IV .Q24H [facility] Protocol 12 UNITS/KG/HR Nitroglycerin 1 inch 07/17/18 18:00 Nitro-Bid Oint TOPICAL Q6HR [facility] Nitroglycerin 0.4 mg 07/17/18 13:06 Nitrostat SUBLINGUAL Q5M PRN Chest Pain Intake and Output 07/16/18 07/17/18 07/17/18 22:59 06:59 14:59 Other: Weight 64.864 kg Patient Weight 07/18/18 06:59 Weight 64.864 kg 07/17/18 11:41 07/17/18 11:41 Assessment and Plan Assessment: ASSESSMENT Chest pain at rest. EKG abnormalities old, no changes. History of coronary artery disease with triple-vessel disease status post bypass grafting History of mitral valve repair Hypertension Dyslipidemia Status post permanent pacemaker implantation secondary to sinus pauses causing syncope. Diabetes mellitus Former nicotine dependence PLAN Obtain 2-D echocardiogram and Doppler study to assess cardiac structure and function. Continue to obtain serial cardiac enzymes to rule out an acute coronary event. If cardiac enzymes are negative 3 heparin infusion can be discontinued. Resume aspirin, atorvastatin, carvedilol and Imdur at home doses. Further recommendations to follow based on clinical course. Thank you kindly for this consultation. Nurse Practitioner note has been reviewed, I agree with a documented findings and plan of care. Patient was seen and examined.
[2018-07-17] MEDS: CARVEDILOL 12.5 MG TAB PO SCH (18:22)
[2018-07-17] MEDS: NITROGLYCERIN OINT 1 INCH/GM PACKET TOPICAL SCH (18:22)
[2018-07-17 18:27] VITALS: RESP 16
[2018-07-17 18:40] LABS: Creatine Kinase 81 U/L (30-135)
[2018-07-17 18:53] LABS: Creatine Kinase MB 1.2 ng/mL (0.0-2.4); Troponin I <0.012 ng/mL (0.000-0.034)
[2018-07-17 21:36] LABS: INR 1.1 (<1.2); Partial Thromboplastin Time 66.6 sec (22.0-30.0); Prothrombin Time 10.9 sec (9.0-12.0)
[2018-07-17] MEDS ORDERED: HEPARIN SODIUM,PORCINE 5,000 UNIT/ML 1 ML VIAL IV PRN (23:48)
[2018-07-18 00:31] LABS: Creatine Kinase 107 U/L (30-135)
[2018-07-18 00:45] LABS: Creatine Kinase MB 1.9 ng/mL (0.0-2.4); Troponin I <0.012 ng/mL (0.000-0.034)
[2018-07-18] MEDS: NITROGLYCERIN OINT 1 INCH/GM PACKET TOPICAL SCH ×2 (00:45→06:08)
[2018-07-18 03:50] LABS: Cholesterol 176 mg/dL (<200); HDL Cholesterol 48 mg/dL (40-60); LDL Cholesterol,Calculated 104 mg/dL (0-99); Triglycerides 122 mg/dL (<150)
[2018-07-18 06:43] LABS: Glucose,Whole Blood 148 mg/dL (75-99)
[2018-07-18] MEDS ORDERED: glipiZIDE 5 MG TAB PO SCH (07:30)
[2018-07-18] MEDS ORDERED: REGADENOSON 0.4 MG/5 ML SYRINGE IV ONE (07:35)
[2018-07-18] MEDS ORDERED: AMINOPHYLLINE 500 MG/20 ML VIAL IV PRN (07:35)
--- NOTE | 2018-07-18 08:06 | PN ---
PROGRESS NOTE Mrs. Martinez 77-year-old female who is followed by Dr. Perez on a regular basis, status post permanent pacemaker implantation, history of coronary bypass grafting, mitral valve repair, redo coronary artery bypass grafting in 2000, who presented with symptoms of chest discomfort occurring at rest, not activity related. She has some dyspnea on exertion with physical activity, but not at rest. She has no PND, no orthopnea. No dizziness. She is pain-free at this time. She denies any nausea and vomiting. She denies any cough or fever. She continues to be at this time on aspirin once a day, Lipitor 80 mg daily, Coreg 12.5 mg twice a day, isosorbide mononitrate 30 mg daily. PHYSICAL EXAMINATION: Blood pressure 137/70 with a heart in the 60s. LUNGS: Clear. HEART: Regular rate and rhythm. S1, S2. No S3 with systolic murmur heard at the base. No diastolic murmur. No rub. ABDOMEN: Soft, nontender. EXTREMITIES: No edema. LAB DATA: Lab data revealed troponin less than 0.012 with a BUN and creatinine of 19 and 0.9. Her LDL is 104. Her EKG revealed sinus mechanism with T-wave inversion in the lateral precordial leads that were noted in the past. IMPRESSION: 1. Chest discomfort of unclear etiology. No evidence of acute coronary syndrome. 2. History of coronary disease with redo coronary artery bypass grafting. 3. Post pacemaker implantation. 4. Hyperlipidemia. RECOMMENDATION: From the cardiac standpoint, I will proceed with a myocardial perfusion imaging to assess her status and guide her treatment. If there is evidence of inducible ischemia, then she will undergo repeat cardiac catheterization by Dr. Perez. I have discussed those findings with the patient. MMODL / IJN: [id number] /
[2018-07-18] MEDS ORDERED: ISOSORBIDE MONONITRATE ER 30 MG TAB.ER.24H PO SCH (09:00)
[2018-07-18] MEDS ORDERED: ASPIRIN 81 MG PO SCH (09:00)
[2018-07-18] MEDS ORDERED: ATORVASTATIN 80 MG TAB PO SCH (09:00)
[2018-07-18] MEDS ORDERED: ASPIRIN 325 MG TAB PO SCH (09:00)
--- NOTE | 2018-07-18 09:11 | P.HPIM ---
History of Present Illness H&P Date: 07/18/18 Chief Complaint: Chest pressure. This is a history and physical who is 77-year-old patient with history of chest pressure. She has coronary bypass history with diabetes and has history of pacemaker placement in the past for significant pauses. The patient woke up this morning with significant pain. She claimed that it was very similar to her bypass. No other palpitations or loss of consciousness. She denies headache numbness or weakness. Review of Systems All systems: negative Constitutional: Denies chills, Denies fever Eyes: denies blurred vision, denies pain Ears, nose, mouth and throat: Denies headache, Denies sore throat Cardiovascular: Reports as per HPI, Reports chest pain Gastrointestinal: Denies abdominal pain, Denies diarrhea, Denies nausea, Denies vomiting Genitourinary: Denies dysuria, Denies hematuria Musculoskeletal: Denies myalgias Past Medical History Past Medical History: Coronary Artery Disease (CAD), Diabetes Mellitus, Hyperlipidemia, Hypertension, Myocardial Infarction (CT), Renal Disease, Thyroid Disorder Additional Past Medical History / Comment(s): CT X2, HEART VALVE REPLACED. 3RD STAGE KIDNEY DISEASE. TREMORS HANDS. OCC SHORTNESS OF BREATH. SEE DR Toure. Last Myocardial Infarction Date:: 2015 EST History of Any Multi-Drug Resistant Organisms: None Reported Past Surgical History: Appendectomy, Cardiac Valve Replacement, Cholecystectomy , Heart Catheterization With Stent, Joint Replacement, Orthopedic Surgery, Pacemaker, Tonsillectomy Additional Past Surgical History / Comment(s): Bilateral shoulder sx, SYDNI TOTAL KNEES. STENTS X2. left shoulder scope. Pacemaker - January 2018, egd/ colonoscopy Past Anesthesia/Blood Transfusion Reactions: No Reported Reaction Additional Past Anesthesia/Blood Transfusion Reaction / Comment(s): clausterphobia Date of Last Stent Placement:: UNKNOWN Type of Cardiac Device: Permanent Pacemaker Device Placement Date:: January 2018 Past Psychological History: Anxiety, Depression Smoking Status: Former smoker Past Alcohol Use History: None Reported Additional Past Alcohol Use History / Comment(s): started smoking 1976 <1/2 PPD , QUIT 2011. Past Drug Use History: None Reported - Past Family History Mother Family Medical History: Diabetes Mellitus, Myocardial Infarction (CT) Father Family Medical History: Myocardial Infarction (CT) Medications and Allergies Home Medications Medication Instructions Recorded Confirmed Type Omeprazole 20 mg PO DAILY 06/02/16 07/17/18 History Primidone [Mysoline] 50 mg PO HS 06/02/16 07/17/18 History Sertraline [Zoloft] 150 mg PO DAILY 06/02/16 07/17/18 History Albuterol Nebulized [Ventolin 2.5 mg INHALATION RT-TID PRN 11/06/17 07/17/18 History Nebulized] Aspirin [Adult Low Dose Aspirin EC] 81 mg PO DAILY 11/06/17 07/17/18 History Atorvastatin Calcium [Lipitor] 80 mg PO DAILY 11/06/17 07/17/18 History Isosorbide Mononitrate ER [Imdur] 30 mg PO DAILY 11/06/17 07/17/18 History Levothyroxine Sodium 25 mcg PO DAILY 11/06/17 07/17/18 History glipiZIDE [Glucotrol] 5 mg PO DAILY 11/06/17 07/17/18 History Carvedilol [Coreg] 12.5 mg PO BID 07/17/18 07/17/18 History Cyanocobalamin (Vitamin B-12) 1,000 mcg PO DAILY 07/17/18 07/17/18 History [Vitamin B-12] Nitroglycerin Sl Tabs [Nitrostat] 0.4 mg PO Q5M PRN 07/17/18 07/17/18 History Nortriptyline HCl [Pamelor] 50 mg PO HS 07/17/18 07/17/18 History Oxybutynin Chloride [Oxybutynin 10 mg PO DAILY 07/17/18 07/17/18 History Chloride ER] Tear Drops 1 drop BOTH EYES DAILY PRN 07/17/18 07/17/18 History Allergies Allergy/AdvReac Type Severity Reaction Status Date / Time adhesive Allergy Rash/Hives Verified 07/18/18 03:24 adhesive tape Allergy Rash/Hives Verified 07/18/18 03:24 Cephalosporins Allergy Unknown Verified 07/18/18 03:24 erythromycin base Allergy Rash/Hives Verified 07/18/18 03:24 Macrolide Antibiotics Allergy Unknown Verified 07/18/18 03:24 zolpidem Allergy Unknown Verified 07/18/18 03:24 EKG pads Allergy Rash/Hives Uncoded 07/18/18 03:24 Physical Exam Vitals: Vital Signs Temp Pulse Resp BP Pulse Ox 07/17/18 14:53 641 H 8 L 136/100 99 07/17/18 11:32 68 18 165/78 99 07/17/18 11:20 97.7 F 71 18 168/85 99 Intake and Output 07/17/18 07/17/18 07/17/18 06:59 14:59 22:59 Other: Weight 64.864 kg - Constitutional General appearance: no acute distress - EENT Eyes: EOMI - Neck Neck: no lymphadenopathy - Respiratory Respiratory: bilateral: CTA - Cardiovascular Rhythm: regular Heart sounds: normal: S1, S2 Abnormal Heart Sounds: no S3 Gallop - Gastrointestinal General gastrointestinal: soft, no tenderness - Musculoskeletal Musculoskeletal: gait normal - Psychiatric Psychiatric: A&O x's 3, appropriate affect Results CBC & Chem 7: 07/17/18 11:41 07/17/18 11:41 Labs: Abnormal Lab Results - Last 24 Hours (Table) 07/17/18 07/17/18 Range/Units 11:41 14:25 BUN 19 H (7-17) mg/dL Glucose 220 H (74-99) mg/dL POC Glucose (mg/dL) 115 H (75-99) mg/dL Assessment and Plan (1) CAD (coronary artery disease) Current Visit: Yes Status: Acute Code(s): I25.10 - ATHSCL HEART DISEASE OF [place] CORONARY ARTERY W/O ANG PCTRS SNOMED Code(s): 61641949 (2) Unstable angina pectoris Current Visit: Yes Status: Acute Code(s): I20.0 - UNSTABLE ANGINA SNOMED Code(s): 0292072 Plan: Rule out myocardial infarction. Reconcile home medications. Cardiology has been counseled to, I appreciate their input. See orders otherwise.
[2018-07-18] MEDS ORDERED: ARTIFICIAL TEARS-HYPROMELLOSE DROPS 15 ML BTL BOTH EYES PRN (09:20)
[2018-07-18] MEDS ORDERED: NITROGLYCERIN SL TABS 0.4 MG TAB SUBLINGUAL PRN (09:20)
[2018-07-18] MEDS ORDERED: SERTRALINE 100 MG TAB PO SCH (09:30)
[2018-07-18] MEDS ORDERED: LEVOTHYROXINE 25 MCG TAB PO SCH (09:30)
[2018-07-18] MEDS ORDERED: OXYBUTYNIN 10 MG TAB.ER.24 PO SCH (09:30)
[2018-07-18] MEDS ORDERED: CYANOCOBALAMIN 500 MCG TAB PO SCH (09:30)
[2018-07-18] MEDS: CARVEDILOL 12.5 MG TAB PO SCH (10:34)
[2018-07-18 11:40] VITALS: BP 137/82; PULSE 77; TEMP 97.5
--- NOTE | 2018-07-18 12:42 | NM ---
EXAMINATION TYPE: NM stress lexiscan cardiolite DATE OF EXAM: 07/18/2018 COMPARISON: Previous exam 02/10/2014 HISTORY: Coronary disease TECHNIQUE: After the intravenous administration of 10.32 mCi Tc 99m Sestamibi - Cardiolite resting S PECT images acquired 45 minutes post injection. The patient received 0.4mg Lexiscan, 26.1 mCi Tc 99m Sestamibi - Stress images obtained [address] injection FINDINGS: Review of stress and rest SPECT images demonstrates decreased uptake along the anterior wall left randy tricle extending towards the apex as well as inferoseptal and inferolateral khan which is an interva l change compared to previous exam. At the apex there is reduced uptake in the abbi infarct region on stress as compared to rest images. Gated analysis shows somewhat irregular wall motion with an estim ated left ventricular ejection fraction of 38 % compared to previous exam of 58%. IMPRESSION: Suspect some abbi-infarct pharmacologically induced apical ischemia. Interval change to 38% ejection fraction. Additional findings above. Consider echocardiographic correlation.
--- NOTE | 2018-07-18 13:06 | ECHOF ---
Referral Reason:cp MEASUREMENTS -------- HEIGHT: 167.6 cm WEIGHT: 64.9 kg BP: 159/74 RVIDd: 3.1 cm (< 3.3) IVSd: 0.5 cm (0.6 - 1.1) LVIDd: 6.2 cm (3.9 - 5.3) LVPWd: 0.9 cm (0.6 - 1.1) IVSs: 0.8 cm LVIDs: 4.7 cm LVPWs: 1.4 cm LAESV Index (A-L): 35.99 ml/m Ao Diam: 2.5 cm (2.0 - 3.7) AV Cusp: 1.8 cm (1.5 - 2.6) LA Diam: 4.0 cm (2.7 - 3.8) EPSS: 2.0 cm MV E Blanco: 1.27 m/s MV DecT: 482 ms MV A Blanco: 1.25 m/s MV E/A Ratio: 1.02 AR PHT: 548 ms RAP: 5.00 mmHg RVSP: 15.12 mmHg MV EF SLOPE: 22.13 mm/s (70 - 150) MV EXCURSION: 1.30 cm (> 18.000) FINDINGS -------- Sinus rhythm. This was a technically adequate study. The left ventricle is moderately dilated. Left ventricular wall thickness is normal. Overall left ventricular systolic function is moderately impaired with, an EF between 35 - 40 %. Mid anterior L V wall motion is hypokinetic. Mid anteroseptal LV wall motion is hypokinetic. Apical anterior L V wall motion is hypokinetic. Apical lateral LV wall motion is hypokinetic. The right ventricle is normal in size. LA is moderately dilated 34-39 ml/m2 The right atrium is normal in size. Electronic pacemaker lead seen in the right ventricular cavity. Aortic valve is trileaflet and is mildly thickened. There is jmvf-[id number] aortic regurgitation. There is no evidence of aortic stenosis. Mild mitral annular calcification present. Psix-ci-afirnwmw mitral regurgitation is present. Mitr al ring annulloplasty is in place. Trace tricuspid regurgitation present. Right ventricular systolic pressure is normal at < 35 mmHg. There is no evidence of pulmonary hypertension. Trace/mild (physiologic) pulmonic regurgitation. The aortic root size is normal. Normal inferior vena cava with normal inspiratory collapse consistent with estimated right atrial pre ssure of 5 mmHg. There is no pericardial effusion. CONCLUSIONS -------- 1. Sinus rhythm. 2. This was a technically adequate study. 3. The left ventricle is moderately dilated. 4. Left ventricular wall thickness is normal. 5. Overall left ventricular systolic function is moderately impaired with, an EF between 35 - 40 %. 6. Mid anterior LV wall motion is hypokinetic. 7. Mid anteroseptal LV wall motion is hypokinetic. 8. Apical anterior LV wall motion is hypokinetic. 9. Apical lateral LV wall motion is hypokinetic. 10. LA is moderately dilated 34-39 ml/m2 11. Electronic pacemaker lead seen in the right ventricular cavity. 12. Aortic valve is trileaflet and is mildly thickened. 13. There is psav-up-sloioleq aortic regurgitation. 14. Mild mitral annular calcification present. 15. Drrb-hg-rojzaald mitral regurgitation is present. 16. Mitral ring annulloplasty is in place. 17. Trace tricuspid regurgitation present. 18. Right ventricular systolic pressure is normal at < 35 mmHg. 19. Trace/mild (physiologic) pulmonic regurgitation. 20. The aortic root size is normal. 21. There is no pericardial effusion. PATIENT CASE MANAGER: Jimmy Flores RDCS
--- NOTE | 2018-07-18 13:39 | EST ---
EXERCISE STRESS DATE OF SERVICE: 07/18/2018 AGE: 77 SEX: Female HT: 5'6" WT: 143 PROTOCOL: Lexiscan Cardiolite STAGE: DURATION OF EXERCISE: HEART RATE REST: 65 BLOOD PRESSURE REST: 182/76 MAXIMUM HEART RATE ACHIEVED: 74 MAXIMUM BLOOD PRESSURE: 185/70 85% MPHR: 123 100% MPHR: 145 METS: INDICATIONS: Unstable angina. CLINICAL INFORMATION: Baseline rhythm is sinus mechanism rate of 65, paced rhythm. Baseline blood pressure 182/76 mmHg. Patient received injection of Lexiscan. Electrocardiographic monitoring revealed no evidence of diagnostic ischemic ST deviation. CONCLUSION: 1. Nondiagnostic electrocardiograph stress testing. 2. Nuclear images will be reported separately. MMODL / IJN: [id number] /
[2018-07-18 14:45] LABS: Hemoglobin A1C 7.5 % (4.0-6.0)
[2018-07-18 16:45] LABS: Glucose,Whole Blood 132 mg/dL (75-99)
[2018-07-18] MEDS ORDERED: NORTRIPTYLINE 25 MG CAP PO SCH (21:00)
[2018-07-18] MEDS ORDERED: PRIMIDONE 50 MG TAB PO SCH (21:00)
[2018-07-19] MEDS ORDERED: PANTOPRAZOLE 40 MG TABLET PO SCH (07:30)
[2018-07-19] MEDS ORDERED: NON-FORMULARY DRUG (Aspirin [Adult Low Dose Aspirin Ec] 81 MG) PO SCH (09:00)
== END 2018-07-18 15:05 | disposition home or self-care (01) ==
LOC: EC 11:16 → 3OBS 13:06
PROVIDERS: ADMIT Family Medicine; ATTEND Family Medicine
DX: R07.89 Other chest pain (principal); I25.10 Atherosclerotic heart disease of native coronary artery without angina pectoris; Z95.1 Presence of aortocoronary bypass graft; Z95.5 Presence of coronary angioplasty implant and graft; E78.5 Hyperlipidemia, unspecified; R06.02 Shortness of breath; Z79.899 Other long term (current) drug therapy; Z79.82 Long term (current) use of aspirin; Z79.84 Long term (current) use of oral hypoglycemic drugs; Z79.890 Hormone replacement therapy; Z88.1 Allergy status to other antibiotic agents; Z88.8 Allergy status to other drugs, medicaments and biological substances; Z91.048 Other nonmedicinal substance allergy status; I25.2 Old myocardial infarction; R25.1 Tremor, unspecified; I12.9 Hypertensive chronic kidney disease with stage 1 through stage 4 chronic kidney disease, or unspecified chronic kidney disease; E11.22 Type 2 diabetes mellitus with diabetic chronic kidney disease; N18.3 Chronic kidney disease, stage 3 (moderate); F41.9 Anxiety disorder, unspecified; F32.9 Major depressive disorder, single episode, unspecified; Z90.49 Acquired absence of other specified parts of digestive tract; Z87.891 Personal history of nicotine dependence; R61 Generalized hyperhidrosis; R42 Dizziness and giddiness; R06.09 Other forms of dyspnea; R20.0 Anesthesia of skin; R20.2 Paresthesia of skin; Z83.3 Family history of diabetes mellitus; R94.31 Abnormal electrocardiogram [ECG] [EKG]; Z95.0 Presence of cardiac pacemaker
CPT/HCPCS: 99291 ×2; 96365 ×2; 96366 ×11; 96376 ×2; 36415; 93005; 93017; 93306; 80061; 80053; 82550; 82553; 83735; 84484; 85025; 85610; 85730 ×2; 83036; 71046; 78452; G0378 ×2; A9500; J1644 ×2; J2785

== ENCOUNTER 2018-08-16 07:41 | Day surgery (SDC) | payer MEDICARE, BC ==
[2018-08-13 15:44] VITALS: BMI 23.1
[2018-08-16] MEDS ORDERED: ALPRAZolam 0.25 MG TAB PO PRN (07:43)
[2018-08-16] MEDS ORDERED: ALPRAZolam 0.5 MG TAB PO PRN (07:43)
[2018-08-16] MEDS ORDERED: SODIUM CHLORIDE 0.9% 1,000 ML in EMPTY BAG 1 BAG IV ONE (07:43)
[2018-08-16] MEDS ORDERED: ASPIRIN 325 MG TAB PO STA (07:43)
[2018-08-16] MEDS ORDERED: ATORVASTATIN 80 MG TAB PO STA (07:43)
[2018-08-16] MEDS ORDERED: NITROGLYCERIN SL TABS 0.4 MG TAB SUBLINGUAL PRN (07:43)
[2018-08-16 08:24] VITALS: PULSE 63; TEMP 97.9
[2018-08-16 08:34] LABS: Glucose,Whole Blood 129 mg/dL (75-99)
[2018-08-16] MEDS ORDERED: fentaNYL (PF) 50 MCG/ML 2 ML AMP ONE (09:10)
[2018-08-16] MEDS ORDERED: LIDOCAINE 1% INJ 10MG/ML (20 ML MDV) ONE (09:10)
[2018-08-16] MEDS ORDERED: MIDAZOLAM 2 MG/2 ML VIAL ONE (09:10)
[2018-08-16] MEDS ORDERED: MIDAZOLAM 2 MG/2 ML VIAL IV ONE (09:21)
[2018-08-16] MEDS ORDERED: fentaNYL (PF) 50 MCG/ML 2 ML AMP IV ONE (09:22)
[2018-08-16] MEDS ORDERED: LIDOCAINE 1% INJ 10MG/ML (20 ML MDV) SQ ONE (09:27)
[2018-08-16 09:37] VITALS: RESP 16
[2018-08-16] MEDS ORDERED: IOPAMIDOL-370 125ML BTL INJ ONE (10:00)
[2018-08-16] MEDS ORDERED: RX INFO: IV CONTRAST WAS GIVEN 1 EACH MISC MISCELLANE PRN (10:08)
[2018-08-16] MEDS ORDERED: SODIUM CHLORIDE 0.9% 1,000 ML IV SCH (10:15)
[2018-08-16 16:34] VITALS: BP 156/79
--- NOTE | 2018-08-21 09:34 | P.CARDCATH ---
Date of Procedure: 08/21/18 Preoperative Diagnosis: Chest Pain and positive stress test Postoperative Diagnosis: The same Procedure(s) Performed: Left heart cath catheterization without left ventriculography Description of Procedure: HISTORY: Mrs. Martinez is a 77-year-old female with history of ischemic heart disease with previous bypass surgery, cardiomyopathy and recurrent episodes of dizziness and chest pains. Recently had a stress test which showed evidence of ischemia. Patient is advised to have a cardiac catheterization for definitive diagnosis. CONSENT:I have discussed the risks, benefits and alternative therapies for the above-mentioned procedure and for both sedation/analgesia as well as necessary blood product administration, if indicated, as they pertain to this patient. The patient has indicated understanding and acceptance of the risks and procedures discussed. PROCEDURE: Patient was brought to the lab in a fasting state. Patient was given some IV sedation. The right groin is infiltrated with lidocaine and right femoral artery was entered using Seldinger technique. A 6-Colomb[place] catheter was left in place and selective coronary arteriography was performed. Patient tolerated the procedure well. Femoral angiogram was performed and Angio-Seal was applied for hemostasis. No immediate complications were noted and patient was transferred to [facility] in a stable condition. Conscious Sedation: Versed 1mg Fentanyl 25 g Duration 35minutes HEMODYNAMICS: The aortic pressure was about 110/70. There was no gradient across the aortic valve SELECTIVE CORONARY ARTERIOGRAPHY: LEFT MAIN: The left main coronary artery is short and patent THE LEFT ANTERIOR DESCENDING CORONARY ARTERY: This is a moderate caliber vessel with patent stent in the proximal portion with partial in-stent stenosis of about 50-60%. There is competent to flow in the distal LAD from the JOY graft THE LEFT CIRCUMFLEX AND IS CORONARY ARTERY: This is a good caliber vessel giving rise to good-sized OM branch. The OM branch has stent with in-stent stenosis with about 50% stenosis. However this appears to be stable compared to the previous studies. There is also a tight lesion involving the circumflex immediately after the origin of the OM branch which appears to be about 70%. However this is been stable compared to the previous studies THE RIGHT CORONARY ARTERY:. This is totally occluded in the proximal portion. THE VEIN GRAFT TO THE RCA: This is patent throat its length and also at the proximal and distal anastomosis. The the distal RCA is free of occlusive disease. He THE JOY GRAFT TO THE LAD: This is patent at the proximal and also distal anastomosis. It appears to be small in caliber and and has competent to flow into the distal LAD LEFT VENTRICULOGRAPHY: Not performed FINAL IMPRESSION: Coronary artery disease with patent JOY to the LAD and vein graft to the RCA. The red cliff LAD shows in-stent stenosis proximally. There is a moderate in-stent stenosis involving the OM branch of the circumflex and also about 70% lesion of the circumflex just beyond the origin of the OM branch. However, these reasons have been stable. The right coronary artery is free of any occlusive disease, beyond the insertion site PLAN:. Continue maximal medical therapy and risk factor modification. Films were reviewed with Dr. Valiente PROGNOSIS: Guarded
== END 2018-08-16 16:15 | disposition home or self-care (01) ==
LOC: CATHCVL 07:41
PROVIDERS: ATTEND Internal Medicine Cardiovascular Disease
DX: I25.10 Atherosclerotic heart disease of native coronary artery without angina pectoris (principal); T82.855A Stenosis of coronary artery stent, initial encounter; R94.39 Abnormal result of other cardiovascular function study; I42.9 Cardiomyopathy, unspecified; I49.5 Sick sinus syndrome; E11.9 Type 2 diabetes mellitus without complications; I10 Essential (primary) hypertension; E78.00 Pure hypercholesterolemia, unspecified; I25.9 Chronic ischemic heart disease, unspecified; I65.29 Occlusion and stenosis of unspecified carotid artery; I77.9 Disorder of arteries and arterioles, unspecified; I25.2 Old myocardial infarction; Z95.0 Presence of cardiac pacemaker; Z95.5 Presence of coronary angioplasty implant and graft; Z95.1 Presence of aortocoronary bypass graft; F17.210 Nicotine dependence, cigarettes, uncomplicated; Z79.84 Long term (current) use of oral hypoglycemic drugs; Z79.82 Long term (current) use of aspirin; Z79.890 Hormone replacement therapy; Z79.899 Other long term (current) drug therapy; Z82.49 Family history of ischemic heart disease and other diseases of the circulatory system; Z88.0 Allergy status to penicillin
CPT/HCPCS: 93458; C1760; C1894; C1769; J2250; J2001; J3010; Q9967

== ENCOUNTER → 2019-12-11 | Outpatient (CLI) | payer MEDICARE, BC ==
--- NOTE | 2019-12-12 07:29 | US ---
EXAMINATION TYPE: US kidneys/renal and bladder DATE OF EXAM: 12/11/2019 COMPARISON: NONE CLINICAL HISTORY: R33.9 urinary retention. Pt states known chronic kidney disease EXAM MEASUREMENTS: Right Kidney: 8.3 x 3.8 x 4.4 cm Left Kidney: 9.9 x 5.0 x 4.4 cm Right Kidney: Smaller than the left kidney, no evidence of hydronephrosis or nephrolithiasis. Left Kidney: No hydronephrosis or nephrolithiasis. Bladder: wnl Bilateral Jets seen: No There is no evidence for hydronephrosis at this point in time. No nephrolithiasis is seen. No marielena s are identified. The urinary bladder is anechoic. Bilateral ureteral jets are not seen. IMPRESSION: Incidentally noted slight asymmetric size of the kidneys with the left greater than right . This is likely an incidental finding. No hydronephrosis or nephrolithiasis within either kidney.
== END | disposition home or self-care (01) ==
LOC: RADUSWWP 15:56
PROVIDERS: ATTEND Obstetrics & Gynecology
DX: R33.9 Retention of urine, unspecified (principal)
CPT/HCPCS: 76770